=== PATIENT | male | born 1960 | race Caucasian/White ===

== ENCOUNTER → 2016-05-01 | Outpatient (CLI) | payer OTHER ==
[~2016-05-01] MED LIST: ADAP0.1G8 TOP; CHOL20007 PO; ESZO1TAB6 PO; OYST500T47 PO
[2016-05-01 16:48] LABS: BASO % 0.5 %; BASO ABS # 0.03 K/uL (0-0.2); COMPLETE YES; EOS % 3.6 %; HEMATOCRIT 41.7 % (42-52); IG% 0.3 %; LYMPH % 25.5 %; LYMPH ABS # 1.55 K/uL (1.2-3.4); MEAN CORPUSCULAR HEMOGLOBIN 30.8 pg (25-34); MEAN CORPUSCULAR HGB CONC 33.8 g/dl (32-36); MEAN PLATELET VOLUME 10.1 fL (7.4-10.4); MONO % 5.9 %; NEUT % 64.2 %; PLATELET COUNT 256 K/uL (130-400); RED BLOOD COUNT 4.58 M/uL (4.7-6.1); WHITE BLOOD COUNT 6.09 K/uL (4.8-10.8)
[2016-05-01 16:57] LABS: ALT/SGPT 23 U/L (12-78); BLOOD UREA NITROGEN 26 mg/dl (7-18); BUN/CREATININE RATIO 33.8 (10-20); CALCIUM 9.2 mg/dl (8.5-10.1); CARBON DIOXIDE 26 mmol/L (21-32); CHLORIDE 101 mmol/L (98-107); CHOLESTEROL 184 mg/dl (0-200); CREATININE 0.77 mg/dl (0.60-1.40); GLUCOSE 91 mg/dl (70-99); SODIUM 138 mmol/L (136-145); TRIGLYCERIDES 79 mg/dl (0-150); VERY LOW DENSITY LIPOPROT CALC 16 mg/dl
[2016-05-01 17:06] LABS: ALB/GLOB RATIO 1.1 (0.9-2); ALKALINE PHOSPHATASE 71 U/L (45-117); AST/SGOT 20 U/L (15-37); CHOLESTEROL/HDL RATIO 3.2; HDL CHOLESTEROL 57 mg/dl; LDL CHOLESTEROL CALCULATED 111 mg/dl
== END | disposition home or self-care (01) ==
LOC: C.LABBC 15:16
PROVIDERS: ATTEND Internal Medicine
DX: R63.4 Abnormal weight loss (principal); Z11.59 Encounter for screening for other viral diseases

== ENCOUNTER → 2016-05-10 | Outpatient (CLI) | payer OTHER ==
[2016-05-14 18:27] LABS: IGA SERUM 180 mg/dL (81-463); TIS TRANS IGA 1 U/mL (<4)
== END | disposition home or self-care (01) ==
LOC: C.LAB1850 16:22
PROVIDERS: ATTEND Internal Medicine
DX: E61.8 Deficiency of other specified nutrient elements (principal); R10.9 Unspecified abdominal pain

== ENCOUNTER → 2016-05-21 | Outpatient (CLI) | payer OTHER ==
[~2016-05-21] MED LIST changes: +MethylPREDNISolone HOME PACK 16 MG TAB PO SCH; +OPTIRAY 320 IV PRN
--- NOTE | 2016-05-21 11:38 | DIAGNOSTIC IMAGING REPORT ---
CT ABD/PELVIS IV AND ORAL CONT CLINICAL HISTORY: Weight loss, generalized abdominal pain. Bloating. COMPARISON STUDY: MRI dated 07/11/2009 TECHNIQUE: Following the IV administration of 93 mL of Optiray-320, CT scan of the abdomen and pelvis was performed from the lung bases to the proximal femurs. Images are reviewed in the axial, sagittal, and coronal planes. IV contrast was administered without complication. CT DOSE: 262.28 mGy.cm FINDINGS: Lower chest: The heart is normal in size and configuration, without pericardial effusion. The lung bases and pleural spaces are clear. Liver: There are 3 masses within the right hepatic lobe. The largest measures 4.6 cm in diameter. The second largest measures 32 mm in diameter. The third mass measures 11 mm in diameter. These masses demonstrate peripheral nodular enhancement and likely represent hepatic hemangiomas Gallbladder: Unremarkable. Spleen: Normal in size and attenuation. Pancreas: Unremarkable. Adrenal glands: Unremarkable. Kidneys: There is an 8 mm left renal hypodensity consistent with cysts. There is no hydronephrosis. No solid renal masses are visualized. Bowel: There are no transition zones indicate bowel obstruction. There is moderate to marked fecal retention. The appendix is not visualized with certainty. There are no pericecal inflammatory changes. There are no findings to indicate acute diverticulitis. Peritoneum: There is no intraperitoneal free air or abdominal ascites. Vasculature: The abdominal aorta is normal in course and caliber. Adenopathy: None. Pelvic viscera: There is mild bladder wall thickening. There is mild prostamegaly. Skeletal structures: No destructive osseous lesions are seen. IMPRESSION: 1. Right lobe hepatic masses, most consistent with hepatic hemangiomas 2. No evidence of bowel obstruction. No evidence of free air 3. No acute inflammatory changes 4. Fecal retention Electronically signed by: Ruiz Hamm M.D. 05/21/2016 11:37 AM Dictated Date/Time: 05/21/2016 11:31 AM
== END | disposition home or self-care (01) ==
LOC: C.CTS 10:36
PROVIDERS: ATTEND Physician Assistant
DX: R63.4 Abnormal weight loss (principal); R10.9 Unspecified abdominal pain; R16.0 Hepatomegaly, not elsewhere classified

== ENCOUNTER 2016-08-30 14:38 | Emergency (ER) | payer OTHER ==
[~2016-08-30] VITALS: Ht 177.8 cm; Wt 48.9 kg
[~2016-08-30 14:38] MED LIST changes: -ADAP0.1G8 TOP; -CHOL20007 PO; -MethylPREDNISolone HOME PACK 16 MG TAB PO SCH; -OPTIRAY 320 IV PRN; -OYST500T47 PO
[2016-08-30 14:40] VITALS: TEMP 36.5; Ht 177.8 cm; Wt 48.9 kg
--- NOTE | 2016-08-30 15:35 | EMERGENCY ROOM VISIT NOTE ---
History First contact with patient: 14:51 Chief Complaint: GI ASSESSMENT Stated Complaint: RED BLOODY STOOL W/PAIN Nursing Triage Summary: pt to the ED with c/o episode of red blood in stool today and abd pain pt is not on blood thinners History of Present Illness The patient is a 56 year old male who presents to the Emergency Room with complaints of bright red blood per rectum. The patient states that this morning he had one episode of bright red blood per rectum. The patient states that he had some pain before and during the bowel movement. He states the stool was brown and formed with streaks of bright red blood on the outside. He denies diarrhea. He states the stool was not black and tarry. The patient has a history of irritable bowel syndrome but has never had bloody stool. He has had several colonoscopies and EGDs over the last several years which were all negative. He rates his current discomfort a 3/10. He denies any fevers or chills. He denies any nausea or vomiting. He denies any urinary symptoms. Review of Systems A 10 system review of systems was completed with positives and pertinent negatives listed in the HPI. Past Medical/Surgical History Medical Problems: (1) IBS (irritable bowel syndrome) Social History Smoking Status: Never Smoker Marital Status: single Occupation Status: unemployed Current/Historical Medications Scheduled Adapalene (Differin), 1 APPLN TOP HS Cholecalciferol (Vitamin D3), 1 TAB PO DAILY Allergies Coded Allergies: Iodine (Unverified Allergy, Unknown, ., 03/31/15) Uncoded Allergies: IVP DYE (Allergy, Unknown, ., 03/31/15) Physical Exam Vital Signs Date Time Temp Pulse Resp B/P (MAP) Pulse Ox O2 Delivery O2 Flow Rate FiO2 08/30/16 16:53 78 20 126/77 98 08/30/16 14:40 36.5 82 16 123/72 97 Physical Exam VITALS: Vitals are noted on the nurse's note and reviewed by myself. Vital signs stable. The patient is afebrile. He is normotensive. GENERAL: This is a 56-year-old male, in no acute distress, nondiaphoretic, well- developed well-nourished. SKIN: The skin was without rashes, erythema, edema, or bruising. There is no tenting of the skin. Capillary reflex less than 2 seconds. HEAD: Normocephalic atraumatic. EARS: The external ears are normal in appearance. EYES: Pupils equal round and reactive to light and accommodation. Conjunctivae without injection, sclerae without icterus. Extraocular movements intact. NOSE: Patent, turbinates without inflammation or discharge. MOUTH: Mucous membranes moist. Tonsils are not enlarged. Pharynx without erythema or exudate. Uvula midline. Airway patent. Tongue does not deviate. NECK: Supple without nuchal rigidity. No lymphadenopathy. No thyromegaly. Cervical spine is nontender. No JVD. HEART: Regular rate and rhythm without murmurs gallops or rubs. LUNGS: Clear to auscultation bilaterally without wheezes, rales or rhonchi. No retractions or accessory muscle use. ABDOMEN: Positive bowel sounds x 4. Soft, nontender, without masses or organomegaly. RECTAL: There are no hemorrhoids. There is no obvious active bleeding. The stool is brown and guaiac negative. A male RN was present for the exam. MUSCULOSKELETAL: No muscle atrophy, erythema, or edema noted. Normal gait. Strength 5/5 throughout. NEURO: Patient was alert and oriented to person place and time. No focal neurological deficits. Medical Decision & Procedures Laboratory Results 08/30/16 15:30 Red Blood Count 4.46, Mean Corpuscular Volume 92.6, Mean Corpuscular Hemoglobin 30.5, Mean Corpuscular Hemoglobin Concent 32.9, Mean Platelet Volume 9.6, Neutrophils (%) (Auto) 75.1, Lymphocytes (%) (Auto) 17.7, Monocytes (%) (Auto) 5.3, Eosinophils (%) (Auto) 1.5, Basophils (%) (Auto) 0.2, Neutrophils # (Auto) 4.58, Lymphocytes # (Auto) 1.08, Monocytes # (Auto) 0.32, Eosinophils # (Auto) 0.09, Basophils # (Auto) 0.01 08/30/16 15:30 Test 08/30/16 15:30 White Blood Count 6.09 K/uL (4.8-10.8) Red Blood Count 4.46 M/uL (4.7-6.1) Hemoglobin 13.6 g/dL (14.0-18.0) Hematocrit 41.3 % (42-52) Mean Corpuscular Volume 92.6 fL (80-100) Mean Corpuscular Hemoglobin 30.5 pg (25-34) Mean Corpuscular Hemoglobin Concent 32.9 g/dl (32-36) Platelet Count 235 K/uL (130-400) Mean Platelet Volume 9.6 fL (7.4-10.4) Neutrophils (%) (Auto) 75.1 % Lymphocytes (%) (Auto) 17.7 % Monocytes (%) (Auto) 5.3 % Eosinophils (%) (Auto) 1.5 % Basophils (%) (Auto) 0.2 % Neutrophils # (Auto) 4.58 K/uL (1.4-6.5) Lymphocytes # (Auto) 1.08 K/uL (1.2-3.4) Monocytes # (Auto) 0.32 K/uL (0.11-0.59) Eosinophils # (Auto) 0.09 K/uL (0-0.5) Basophils # (Auto) 0.01 K/uL (0-0.2) RDW Standard Deviation 42.7 fL (36.4-46.3) RDW Coefficient of Variation 12.6 % (11.5-14.5) Immature Granulocyte % (Auto) 0.2 % Immature Granulocyte # (Auto) 0.01 K/uL (0.00-0.02) Anion Gap 2.0 mmol/L (3-11) Est Creatinine Clear Calc Drug Dose 74.3 ml/min Estimated GFR () 117.2 Estimated GFR (Non- 101.1 BUN/Creatinine Ratio 21.8 (10-20) Calcium Level 9.1 mg/dl (8.5-10.1) ED Course The patient was seen and examined. Previous visits were reviewed. The patient does not have a fever. He does not have a leukocytosis. He does not have significant anemia. He is hemodynamically stable. The stool was brown and guaiac-negative. There is no obvious active bleeding from the rectum. The patient had one episode of bright red blood per rectum earlier today. He did have discomfort with the bowel movement. This may be related to fissure or potential hemorrhoid. The patient is stable for discharge at this time but should follow-up with his family doctor and gastroenterology if symptoms persist. He should return with any worsening bleeding, lightheadedness, dizziness, chest pain or trouble breathing. The case was discussed with Dr. Traore who agrees with the assessment and treatment plan. Medication Reconciliation: I attest that I have personally reviewed the patient' s current medication list. Blood pressure screening: The patient was found to have normal blood pressure on screening and does not require follow-up. Medical Decision DIFFERENTIAL DIAGNOSIS: Hepatitis, cholecystitis, cholangitis, biliary colic, pancreatitis, pneumonia, subdiaphragmatic abscess, appendicitis, inguinal hernia , nephrolithiasis, inflammatory bowel disease, mesenteric adenitis, peptic ulcer disease, GERD, gastritis, pancreatitis, myocardial infarction, pericarditis, ruptured aortic aneurysm, appendicitis, gastroenteritis, bowel obstruction, splenic infarct, diverticulitis, mesenteric ischemia, metabolic, peritonitis, among others. Impression Primary Impression: Rectal bleeding Departure Information Dispostion Home / Self-Care Condition GOOD Referrals Sammy Cotter M.D. (PCP) Patient Instructions My [facility]
[2016-08-30] MEDS ORDERED: CHOL20007 PO (15:46)
[2016-08-30] MEDS ORDERED: ADAP0.1G8 TOP (15:46)
[2016-08-30 15:51] LABS: BASO % 0.2 %; BASO ABS # 0.01 K/uL (0-0.2); COMPLETE YES; EOS % 1.5 %; HEMATOCRIT 41.3 % (42-52); IG% 0.2 %; LYMPH % 17.7 %; LYMPH ABS # 1.08 K/uL (1.2-3.4); MEAN CELL VOLUME 92.6 fL (80-100); MEAN CORPUSCULAR HEMOGLOBIN 30.5 pg (25-34); MEAN CORPUSCULAR HGB CONC 32.9 g/dl (32-36); MEAN PLATELET VOLUME 9.6 fL (7.4-10.4); MONO % 5.3 %; NEUT % 75.1 %; PLATELET COUNT 235 K/uL (130-400); RED BLOOD COUNT 4.46 M/uL (4.7-6.1); WHITE BLOOD COUNT 6.09 K/uL (4.8-10.8)
[2016-08-30 16:13] LABS: BUN/CREATININE RATIO 21.8 (10-20); CALCIUM 9.1 mg/dl (8.5-10.1); CREATININE 0.75 mg/dl (0.60-1.40)
[2016-08-30 16:53] VITALS: BP 126/77; PULSE 78; O2SAT 98
[2016-10-30] MEDS ORDERED: OYST500T47 PO (13:23)
== END 2016-08-30 16:40 | disposition home or self-care (01) ==
LOC: C.EDB 14:41
DX: K62.5 Hemorrhage of anus and rectum (principal)

== ENCOUNTER → 2016-09-14 | Outpatient (CLI) | payer OTHER ==
[~2016-09-14] MED LIST changes: +ADAP0.1G8 TOP; +CHOL20007 PO; -ESZO1TAB6 PO; +OYST500T47 PO
--- NOTE | 2016-09-14 14:12 | DIAGNOSTIC IMAGING REPORT ---
GI MECKEL'S SCAN CLINICAL HISTORY: R10.9 Abdominal pain of multiple [id number] [id number] Rectal b TECHNIQUE: This examination is acquired following the administration of 15.7 mCi of technetium 99m sodium pertechnetate. COMPARISON STUDY: None FINDINGS: Flow characteristics are considered to be within normal limits. Images to 60 minutes demonstrate normal activity characteristics of the stomach as well as kidneys. There is normal urinary bladder activity. No additional focus of increased activity is appreciated. IMPRESSION: Normal study The above report was generated using voice recognition software. It may contain grammatical, syntax or spelling errors. Electronically signed by: Aly Lay M.D. 09/14/2016 2:10 PM Dictated Date/Time: 09/14/2016 2:09 PM
== END | disposition home or self-care (01) ==
LOC: C.NUCL 12:33
PROVIDERS: ATTEND Physician Assistant
DX: D64.9 Anemia, unspecified (principal); K62.5 Hemorrhage of anus and rectum; R10.9 Unspecified abdominal pain

== ENCOUNTER → 2016-11-08 | Outpatient (CLI) | payer OTHER ==
[2016-11-08 15:25] LABS: CALCIUM 9.3 mg/dl (8.5-10.1); CREATININE 0.76 mg/dl (0.60-1.40)
[2016-11-12 17:05] LABS: ALBUMIN 4.6 G/DL (3.8-4.8); GAMMA GLOBULIN 1.1 G/DL (0.8-1.7); TOTAL PROTEIN 7.2 G/DL (6.2-8.3)
== END | disposition home or self-care (01) ==
LOC: C.LAB1850 12:48
PROVIDERS: ATTEND Internal Medicine Rheumatology
DX: M81.0 Age-related osteoporosis without current pathological fracture (principal); E55.9 Vitamin D deficiency, unspecified; R63.4 Abnormal weight loss; E61.8 Deficiency of other specified nutrient elements

== ENCOUNTER → 2016-11-14 | Day surgery (SDC) | payer OTHER ==
[2016-10-30 13:23] VITALS: BMI 15.0
[~2016-11-14] VITALS: Ht 177.8 cm; Wt 48.2 kg
[~2016-11-14] MED LIST changes: +LIDOCAINE HCL 2% 2 ML VIAL (20MG/ML) ONE; +PROPOFOL IV EMULSION 10 MG/ML 20 ML VIAL IV ONE
[2016-11-14 13:08] VITALS: Ht 177.8 cm; Wt 48.2 kg
--- NOTE | 2016-11-14 14:10 | Discharge Instructions ---
Endoscopy Patient Instructions Date / Procedure(s) Performed Nov 14, 2016. Colonoscopy Allergy Information Coded Allergies: Iodinated Diagnostic Agents (Verified Allergy, Unknown, RASH, 10/30/16) Discharge Date / Findings Nov 14, 2016. Internal hemorrhoids Medication Instructions OK to resume all medications today as prescribed Reported Home Medications Medications Dose Route/Sig Max Daily Dose Days Date Category Dose Instructions Calcium (Oyster Shell) 500 Mg Tab 1 Tab PO QPM 10/30/16 Reported Vitamin D3 (Cholecalciferol) 2,000 Unit Tab 1 Dose PO QAM 90 08/30/16 Reported LIQUID FORM Differin (Adapalene) 0.1 % Gel 1 Appln TOP Q2D 30 08/30/16 Reported Provider Instructions Activity Restrictions - No exercising or heavy lifting for 24 hours. - Do not drink alcohol the day of the procedure. - Do not drive a car or operate machinery until the day after the procedure. - Do not make any important decisions or sign important papers in 24 hours after the procedure. Following Day: - Return to full activity which may include returning to work/school. Diet Start your diet with liquids and light foods (jello, soup, juice, toast). Then eat your usual diet if not nauseated. Treatment For Common After Affects For mild abdominal pain, bloating, or excessive gas: - Rest - Eat lightly - Lie on right side Follow-Up Information Follow-up with Dr. Pato Cotter as scheduled Anesthesia Information What You Should Know You have had a procedure that required some medicine to reduce anxiety and discomfort. This treatment is called moderate sedation. After receiving the treatment, you may be sleepy, but you will be able to breathe on your own. The effects of the treatment may last for several hours. Follow these instructions along with Activity/Diet recommendations noted above: * Do NOT do anything where dizziness or clumsiness would be dangerous. * Rest quietly at home today, then you can be up and about tomorrow. * Have a responsible person stay with you the rest of today. * You may have had an I.V. today. If so, you may take the dressing off later today. Recommendations Call your doctor if: * Trouble breathing * Continuous vomiting for more than 24 hours * Temperature above 101 degrees * Severe abdominal pain or bloating * Pain not relieved by pain medicine ordered * There is increased drainage or redness from any incision * A large amount of rectal bleeding greater than 2-3 tablespoons. (If you had a polyp/s removed or have hemorrhoids, a small amount of blood - from the rectum is to be expected.) * You have any unanswered questions or concerns. IN THE EVENT OF A SERIOUS EMERGENCY, GO TO THE NEAREST EMERGENCY ROOM Your discharge instructions were prepared by provider Khai Robert. Patient Instructions Signature Page See Michelle Patient (or Guardian) Signature/Date: I have read and understand the instructions given to me by my caregivers. Caregiver/RN/Doctor Signature/Date: The above-named patient and/or guardian has received patient instructions on this date. + Original Patient Signature Page (only) stays with chart. Please make copy for patient.
--- NOTE | 2016-11-14 14:12 | Endo History and Physical ---
History & Physical Date of Service: Nov 14, 2016. Chief Complaint: bleeding, weight loss Referring Physician: Dr. Pato Cotter History of Present Illness 56 yo CM who presents for colonoscopy secondary to bleeding and weight loss. Past Surgical History Hx Cardiac Surgery: No Hx Internal Defibrillator: No Hx Pacemaker: No Hx Abdominal Surgery: No Hx of Implantable Prosthesis: No Hx Post-Op Nausea and Vomiting: No Hx Cancer Surgery: No Hx Thoracic Surgery: No Hx Orthopedic: No Hx Urinary Tract Surgery: No Family History IBD Social History Smoking Status: Former Smoker Hx Substance Use: No Hx Alcohol Use: Yes (OCCASIONALLY) Allergies Coded Allergies: Iodinated Diagnostic Agents (Verified Allergy, Unknown, RASH, 10/30/16) Current Medications Reported Home Medications Medications Dose Route/Sig Max Daily Dose Days Date Category Dose Instructions Calcium (Oyster Shell) 500 Mg Tab 1 Tab PO QPM 10/30/16 Reported Vitamin D3 (Cholecalciferol) 2,000 Unit Tab 1 Dose PO QAM 90 08/30/16 Reported LIQUID FORM Differin (Adapalene) 0.1 % Gel 1 Appln TOP Q2D 30 08/30/16 Reported Vital Signs Weight (Kilograms): 48.18 Height (Feet): 5 Height (Inches): 10 Date Time Temp Pulse Resp B/P (MAP) Pulse Ox O2 Delivery O2 Flow Rate FiO2 11/14/16 13:12 36.4 74 20 126/73 (90) 100 Room Air Physical Exam General Appearance: WD/WN, no apparent distress Respiratory/Chest: Auscultation: breath sounds normal Cardiovascular: Heart Auscultation: RRR Abdomen: Bowel Sounds: normal Inspection & Palpation: soft, non-distended, no tenderness, guarding & rebound Assessment and Plan Assessment: 56 yo CM who presents for colonoscopy secondary to bleeding and weight loss. Plan: Proceed with colonoscopy.
--- NOTE | 2016-11-14 14:44 | GI REPORT ---
Procedure Date: 11/14/2016 1:53 PM Procedure: Colonoscopy Indications: Rectal bleeding, Weight loss Medicines: Monitored Anesthesia Care Complications: No immediate complications. Estimated Blood Loss: Estimated blood loss: none. Procedure: Pre-Anesthesia Assessment: - Prior to the procedure, a History and Physical was performed, and patient medications and allergies were reviewed. The patient's tolerance of previous anesthesia was also reviewed. The risks and benefits of the procedure and the sedation options and risks were discussed with the patient. All questions were answered, and informed consent was obtained. Prior Anticoagulants: The patient has taken no previous anticoagulant or antiplatelet agents. ASA Grade Assessment: II - A patient with mild systemic disease. After reviewing the risks and benefits, the patient was deemed in satisfactory condition to undergo the procedure. After I obtained informed consent, the scope was passed under direct vision. Throughout the procedure, the patient's blood pressure, pulse, and oxygen saturations were monitored continuously. The scope was introduced through the anus and advanced to the terminal ileum. The colonoscopy was performed without difficulty. The patient tolerated the procedure well. The quality of the bowel preparation was good. The terminal ileum, ileocecal valve, appendiceal orifice, and rectum were photographed. Findings: Non-bleeding internal hemorrhoids were found during retroflexion. The hemorrhoids were small. Impression: - Non-bleeding internal hemorrhoids. - No specimens collected. Recommendation: - Resume previous diet. - Continue present medications. - Repeat colonoscopy in 10 years for surveillance. - Return to primary care physician as previously scheduled. Khai Robert DO 11/14/2016 2:44:09 PM This report has been signed electronically. Note Initiated On: 11/14/2016 1:53 PM I attest to the content of the Intraoperative Record and orders documented therein, exceptions below
--- NOTE | 2016-11-14 14:53 | Anesthesiology Progress Note ---
Anesthesia Post Op Note Date & Time Nov 14, 2016 at 14:53 Vital Signs Pain Intensity: 0 Vital Signs Past 12 Hours Date Time Temp Pulse Resp B/P (MAP) Pulse Ox O2 Delivery O2 Flow Rate FiO2 11/14/16 14:38 66 20 99/53 (68) 98 Room Air 11/14/16 13:12 36.4 74 20 126/73 (90) 100 Room Air Notes Mental Status: alert / awake / arousable, participated in evaluation Pt Amnestic to Procedure: Yes Nausea / Vomiting: adequately controlled Pain: adequately controlled Airway Patency, RR, SpO2: stable & adequate BP & HR: stable & adequate Hydration State: stable & adequate Anesthetic Complications: no major complications apparent
[2016-11-14 15:10] VITALS: BP 109/71; PULSE 58; O2SAT 99
== END | disposition home or self-care (01) ==
LOC: C.GI 12:49
PROVIDERS: ATTEND Internal Medicine
DX: K62.5 Hemorrhage of anus and rectum (principal); K64.8 Other hemorrhoids; R63.4 Abnormal weight loss; Z87.891 Personal history of nicotine dependence

== ENCOUNTER → 2017-02-26 | Outpatient (CLI) | payer OTHER ==
[~2017-02-26] MED LIST changes: -LIDOCAINE HCL 2% 2 ML VIAL (20MG/ML) ONE; -PROPOFOL IV EMULSION 10 MG/ML 20 ML VIAL IV ONE
--- NOTE | 2017-02-26 14:19 | DIAGNOSTIC IMAGING REPORT ---
R KNEE 1 OR 2 VIEWS ROUTINE CLINICAL HISTORY: Right knee pain. COMPARISON: None FINDINGS: Alignment of the right knee is anatomic. No fracture or osseous lesion is evident. There is mild spurring of the patella at the insertion of quadriceps. No joint effusion is a identified. Joint spaces are preserved. IMPRESSION: Unremarkable right knee radiographs. Electronically signed by: Vega Bro M.D. 02/26/2017 2:18 PM Dictated Date/Time: 02/26/2017 2:17 PM
== END | disposition home or self-care (01) ==
LOC: C.RADBC 13:56
PROVIDERS: ATTEND Internal Medicine
DX: M25.561 Pain in right knee (principal)

== ENCOUNTER → 2017-04-09 | Outpatient (CLI) | payer OTHER | END | disposition home or self-care (01) | LOC: C.LABBC 14:31 | PROVIDERS: ATTEND Internal Medicine Rheumatology | DX: M81.0 Age-related osteoporosis without current pathological fracture (principal); E55.9 Vitamin D deficiency, unspecified; E61.8 Deficiency of other specified nutrient elements ==

== ENCOUNTER 2019-02-02 07:20 | Observation (INO) ==
--- NOTE | 2019-01-20 13:55 | Anesthesiology Consultation ---
Date of Service January 20, 2019 Cystolithopexy under propofol sedation october 2018. No noted anesthesia complications. Assessment & Plan (1) Encounter for pre-operative examination: Chart Review Chart Review: Acceptable Risk for Surgery and Patient NOT seen in Pre Admission Testing Consults Requested none History Surgery Operation Date: 02/02/19 09:05 Proposed Procedures p Greenlight Transurethral Resection Prostate (Photoselective Vaporization Greenlight Laser) - Monico Francisco, DO Height/Weight Height: 5 ft 11 in Weight: 48.081 kg Allergies Allergy/AdvReac Type Severity Reaction Status Date / Time Gadolinium-Containing Allergy Mild Rash Verified 01/14/19 13:50 Contrast Medi Iodinated Contrast Media Allergy Mild Rash Verified 01/14/19 13:50 shellfish derived Allergy Mild Rash Verified 01/14/19 13:50 gluten AdvReac Intermediate Gastrointestinal Verified 01/14/19 13:50 Upset mannitol [From Reclast] AdvReac Intermediate Redness, Verified 01/14/19 13:50 Red eyes, "puffiness" water for injection,sterile AdvReac Intermediate Redness, Verified 01/14/19 13:50 [From Reclast] Red eyes, "puffiness" zoledronic acid AdvReac Intermediate Redness, Verified 01/14/19 13:50 [From Reclast] Red eyes, "puffiness" Medications Home Medications Medication Instructions Recorded Confirmed Last Taken adapalene [Differin] 1 applic TOPICAL HS PRN 02/12/18 01/14/19 11/22/18 calcium carbonate [Calcium 500] 500 mg PO QPM 02/12/18 01/14/19 11/22/18 cholecalciferol (vitamin D3) 5,000 unit PO QAM 02/12/18 01/14/19 11/20/18 [Vitamin D3] ketotifen fumarate 0.025 % (0.035 1 drp OP UD PRN ml 08/18/18 01/14/19 11/08/18 %) eye drops finasteride 5 mg tablet 5 mg PO PM #30 tab 10/22/18 01/14/19 11/23/18 20:00 silodosin 8 mg capsule 8 mg PO PM #30 cap 10/22/18 01/14/19 11/23/18 20:00 meclizine 25 mg PO TID PRN #14 tab 11/09/18 01/14/19 11/11/18 ondansetron HCl [Zofran] 4 mg PO Q6H PRN #14 tab 11/09/18 01/14/19 11/11/18 peg 400-propylene glycol (PF) 1 drp OPHTHALMIC (EYE) BID PRN 01/14/19 01/14/19 Unknown [Systane (PF)] triamcinolone acetonide [Nasacort] 1 spray INTRANASAL UD 01/14/19 01/14/19 Unknown Past Medical History Medical History Benign prostatic hyperplasia with urinary obstruction Bladder stones Chronic interstitial cystitis GERD without esophagitis controlled Hx of irritable bowel syndrome Kidney stones Osteoporosis PAC (premature atrial contraction) PVC's (premature ventricular contractions) Past Family History Family History Father Kidney stones Past Surgical History Surgical History History of colonoscopy X 3 History of cystoscopy 03/10/18 + 10/2018 cystolithopaxy: MAC sedation at [facility] History of esophagogastroduodenoscopy (EGD) X 2 Hx of LASIK Nausea and vomiting after administration of anesthetic agent Social History Smoking Status: Former smoker tobacco type: cigarettes Do You Dip or Chew Tobacco: No Smoking End Date: Hx Alcohol Use: Yes Alcohol type: beer and wine alcohol intake frequency: holidays/special occasions only Hx Substance Use: No substance use type: does not use Testing Laboratory Results Laboratory Tests 08/09/17 11/09/18 11/09/18 14:22 16:50 16:50 WBC Hgb Hct Plt Count PT 10.8 INR 1.1 APTT 26.5 Sodium Potassium Chloride Carbon Dioxide BUN Creatinine Glucose Free T4 1.10 TSH 1.250 01/15/19 01/15/19 14:35 14:35 WBC 7.16 Hgb 14.3 Hct 42.8 Plt Count 285 PT INR APTT Sodium 137 Potassium 4.1 Chloride 102 Carbon Dioxide 31 BUN 18 Creatinine 0.74 Glucose 76 Free T4 TSH Electrocardiogram Date: 11/09/18 Findings: + NSR @ and + [facility] Chest X-Ray Date: 02/21/18 Findings: + NAD
[~2019-02-02 07:20] MED LIST changes: -ADAP0.1G8 TOP; +CEFAZOLIN 2000MG 2,000 MG/15 ML SYR IV SCH; -CHOL20007 PO; +LR 15ML/HR IV SCH; -OYST500T47 PO
[2019-02-02] MEDS ORDERED: MIDAZOLAM HCL 1 MG/ML 2ML VIAL ONE (07:31)
[2019-02-02] MEDS ORDERED: fentaNYL citrate 100 MCG/2 ML VIAL ONE (07:31)
[2019-02-02] MEDS ORDERED: ONDANSETRON INJ 2 MG/ML 2 ML VIAL ONE (08:14)
[2019-02-02] MEDS ORDERED: LIDOCAINE HCL 2% 2 ML VIAL/AMP(20MG/ML) INFIL ONE (08:14)
[2019-02-02] MEDS ORDERED: PROPOFOL IV EMULSION 10 MG/ML 20 ML VIAL IV ONE (08:14)
--- NOTE | 2019-02-02 08:23 | History & Physical Bridge Note ---
Date of Service February 02, 2019 History & Physical Bridge Note I have examined the patient, reviewed the History & Physical and in the interval since the performance of the History & Physical I have noted the following changes of clinical significance: no changes noted
[2019-02-02] MEDS ORDERED: SCOPOLAMINE 1.5 MG TDSY ONE (08:30)
[2019-02-02] MEDS ORDERED: SCOPOLAMINE 1.5 MG TDSY TD ONE (08:35)
[2019-02-02] MEDS ORDERED: ePHEDrine sulfate 50 MG/ML AMP IV PRN (08:35)
[2019-02-02] MEDS ORDERED: PROMETHAZINE HCL 6.25 MG in SODIUM CHLORIDE 0.9% 50 ML IV PRN (08:35)
[2019-02-02] MEDS ORDERED: fentaNYL citrate 100 MCG/2 ML VIAL IV PRN (08:35)
[2019-02-02] MEDS ORDERED: ONDANSETRON INJ 2 MG/ML 2 ML VIAL IV PRN (08:35)
[2019-02-02] MEDS ORDERED: ATROPINE SULFATE 0.1 MG/ML 10ML SYR IV PRN (08:35)
[2019-02-02] MEDS ORDERED: DEXAMETHASONE SOD INJ 4 MG/ML VIAL ONE (09:51)
[2019-02-02] MEDS ORDERED: ePHEDrine sulfate 50 MG/ML SYR ONE (09:56)
[2019-02-02] MEDS ORDERED: BELLADONNA/OPIUM SUPP 60 MG SUPP PR ONE ×2 (10:25→11:53)
[2019-02-02] MEDS ORDERED: BELLADONNA/OPIUM SUPP 60 MG SUPP PR PRN (10:25)
--- NOTE | 2019-02-02 10:40 | Operative Report ---
[facility] Post Operative Report Pre & Post Diagnosis Operation Date: 02/02/19 09:05 Pre-Op Diagnosis: Benign Prostate Hyperplasia Post-Op Diagnosis: Benign Prostate Hyperplasia I identified the patient and participated in the time-out.: Yes Procedure Operation Date: 02/02/19 09:05 Actual Procedures p Greenlight Laser Photovaporization Enucleation and Transurethral Resection Prostate - Monico Francisco DO Surgeon Monico Francisco, II, DO Reworker None Estimated Blood Loss 10 Findings Consistent with Post-Op Diagnosis Large Prostate with obstruction. Specimens Prostate adenoma. Drains 22Fr Catheter Anesthesia Type General Complications none Disposition Disposition: Recovery Room Indications Patient with obstruction due to prostate enlargement. Risks and benefits discussed at length. Description of Procedure Patient was consented and brought back to the operating room. Patient was placed under anesthesia in the supine position and moved to the dorsal lithotomy position. Patient was prepped and draped in the regular sterile fashion. A time out was completed. A 30degree Cystoscope was placed into the bladder and the entire bladder was examined. The UO's were identified as well as the bladder neck, trigone, dome, and the other important landmarks. The prostatic urethra and large lobe s/adenoma was assessed and the veru and bladder neck identified and area/size was assessed. The cystoscope with laser bridge and the Greenlight laser fiber were selected. Starting at the 5 and 7 o'clock positions, a channel was created from bladder neck to the veru. A channel was further formed between the two areas. No major bleeding or areas of concern. The resection then started at the 1 and 11 oclock positions and swept down to the channel. Adenoma pieces were enucleated and displaced into the bladder. All bleeding was controlled. The Specimen was removed and sent for analysis. The resection bed and any bleeding areas were fulgurated/cauterized and the entire area inspected. All bleeding was controlled. The bladder was inspected a final time. The bladder was emptied and irrigated. All specimen and debris was removed. The scope was removed with the bladder partially full. A catheter was placed and balloon elevated. This was easily irrigated. The patient was cleaned, aroused from anesthesia, and transferred to the pacu in stable condition having tolerated the procedure well with no complications. I was present and participated in all aspects of the procedure. The patient will be monitored in the PACU until transferred. I attest to the content of the Intraoperative Record and any orders documented therein. Any exceptions are noted below.
[2019-02-02] MEDS ORDERED: OXYCODONE HCL IR 5 MG TAB (IMMEDIATE RELEASE) PO PRN (11:53)
[2019-02-02] MEDS ORDERED: MECLIZINE HCL 25 MG TAB PO PRN (11:53)
[2019-02-02] MEDS ORDERED: TRIAMCINOLONE ACET NASAL SPRAY 10.8ML BTL PRN (11:53)
[2019-02-02] MEDS ORDERED: MoRPHine SULFATE 2 MG/ML CARP IV PRN (11:53)
[2019-02-02] MEDS ORDERED: ONDANSETRON 4 MG TAB PO PRN (11:53)
--- NOTE | 2019-02-02 11:53 | Anesthesiology Progress Note ---
Date of Service February 02, 2019 Anesthesia Post Procedure Vital Signs Vital Signs: Temp Pulse Pulse Resp BP BP Pulse Ox 02/02/19 11:30 36.8 C 61 18 112/61 97 02/02/19 11:20 63 15 125/65 98 02/02/19 11:10 65 15 115/71 100 02/02/19 11:00 65 15 119/70 100 02/02/19 10:50 58 L 14 119/71 100 02/02/19 10:42 36.3 C L 71 12 125/69 100 02/02/19 08:10 36.7 C 80 20 134/81 97 Pain Intensity Penis: Pain Intensity: 5 Transfer of Care Handoff Completed per policy Notes Mental Status: alert / awake / arousable Patient Amnestic to Procedure: Yes Nausea / Vomiting: adequately controlled Pain: adequately controlled Airway Patency, RR, SpO2: stable & adequate BP & HR: stable & adequate Hydration State: stable & adequate Anesthetic Complications: no major complications apparent
[2019-02-02 12:21] LABS: Basophils # (auto) 0.01 K/uL (0-0.2); Basophils % (auto) 0.1 %; Eosinophils # (auto) 0.08 K/uL (0-0.5); Eosinophils % (auto) 0.7 %; Hematocrit (blood only) 39.4 % (42-52); Hemoglobin 13.2 g/dL (14.0-18.0); Immature Granulocytes # (auto) 0.01 K/uL (0.00-0.02); Immature Granulocytes % (auto) 0.1 %; Lymphocytes # (auto) 1.09 K/uL (1.2-3.4); Mean Corpuscular Hemoglobin 31.4 pg (25-34); Mean Corpuscular Hgb Conc 33.5 g/dL (32-36); Mean Corpuscular Volume 93.8 fL (80-100); Mean Platelet Volume 9.5 fL (7.4-10.4); Monocytes # (auto) 0.14 K/uL (0.11-0.59); Monocytes % (auto) 1.3 %; Neutrophils # (auto) 9.53 K/uL (1.4-6.5); Neutrophils % (auto) 87.8 %; Platelet Count 228 K/uL (130-400); RDW Standard Deviation 44.7 fL (36.4-46.3); White Blood Count 10.86 K/uL (4.8-10.8)
[2019-02-02 12:43] LABS: Albumin Level 3.7 gm/dl (3.4-5.0); BUN Creatinine Ratio 28.4 (10-20); Calcium 9.2 mg/dl (8.5-10.1); Creatinine Clr Calc Pharmacy 71.7 ml/min; Est GFR (African American) 114.3; Est GFR (Non-African American) 98.6; Potassium 3.9 mmol/L (3.5-5.1)
[2019-02-02 12:46] LABS: Albumin Globulin Ratio 1.1 (0.9-2); Bilirubin,Total 0.4 mg/dl (0.2-1); Globulin 3.3 gm/dl (2.5-4.0)
[2019-02-02] MEDS: SODIUM CHLORIDE 0.9% 1000ML 1,000 ML IV SCH (16:10)
[2019-02-02] MEDS: CHECK SCOPOLAMINE PATCH PLACEMENT SCH ×2 (16:17→23:51)
[2019-02-02] MEDS: CEFAZOLIN 1000MG 1,000 MG/7.5 ML SYR IV SCH ×2 (16:17→23:50)
[2019-02-02] MEDS: SILODOSIN: ORDER AWAITING ACTION SCH ×2 (16:21→23:51)
[2019-02-03] MEDS: SODIUM CHLORIDE 0.9% 1000ML 1,000 ML IV SCH (03:46)
[2019-02-03] MEDS: SILODOSIN: ORDER AWAITING ACTION SCH (07:16)
[2019-02-03] MEDS: CEFAZOLIN 1000MG 1,000 MG/7.5 ML SYR IV SCH (08:09)
[2019-02-03] MEDS: CHECK SCOPOLAMINE PATCH PLACEMENT SCH (08:09)
--- NOTE | 2019-02-03 08:25 | Anesthesiology Progress Note ---
Date of Service February 03, 2019 Anesthesia Post Procedure Vital Signs Vital Signs: Temp Pulse Pulse Resp BP Pulse Ox Pulse Ox 02/03/19 08:02 36.4 C L 55 L 16 104/54 L 99 02/03/19 05:14 101/62 02/03/19 04:30 96/44 L 02/03/19 04:00 36.6 C 53 L 16 99/41 L 98 02/03/19 00:05 98 02/02/19 23:02 36.4 C L 53 L 16 90/57 L 98 02/02/19 15:51 36.2 C L 53 L 16 102/55 L 98 02/02/19 14:53 36.4 C L 65 16 95/57 L 98 02/02/19 13:30 61 16 91/50 L 100 02/02/19 12:32 36.1 C L 56 L 16 101/55 L 97 02/02/19 12:11 56 L 16 110/66 98 02/02/19 11:30 36.3 C L 59 L 18 120/68 97 02/02/19 11:20 63 15 125/65 98 02/02/19 11:10 65 15 115/71 100 02/02/19 11:00 65 15 119/70 100 02/02/19 10:50 58 L 14 119/71 100 02/02/19 10:42 36.3 C L 71 12 125/69 100 Pain Intensity Penis: Pain Intensity: 0 Notes Mental Status: alert / awake / arousable and participated in evaluation Patient Amnestic to Procedure: Yes Nausea / Vomiting: adequately controlled Pain: adequately controlled Airway Patency, RR, SpO2: stable & adequate BP & HR: stable & adequate Hydration State: stable & adequate Anesthetic Complications: no major complications apparent and Pt Satisfied with anesthetic care
--- NOTE | 2019-02-03 08:50 | Urology Progress Note ---
Date of Service February 03, 2019 Assessment & Plan (1) Benign prostatic hyperplasia with urinary obstruction: 58yo M POD #1 s/p TURP with Dr. Francisco Progressing as expected, pt feels well CBI clamped at 0830AM If urine remains clear around lunch, okay to plug CBI port and discharge home. Discharge instructions reviewed. Subjective POD #[address] Francisco Pt doing well Ambulated yesterday Tolerating regular diet Denies significant pain Denies n/v/f/c Review of Systems Review of Systems: All systems reviewed & are unremarkable except as noted in HPI & below Physical Exam Physical Exam: A&Ox3 RRR abd soft saez draining clear - CBI running at moderate rate Results & Data Vital Signs (Past 12 Hours) Vital Signs Temp Pulse Pulse Resp BP Pulse Ox Pulse Ox 02/03/19 08:02 36.4 C L 55 L 16 104/54 L 99 02/03/19 05:14 101/62 02/03/19 04:30 96/44 L 02/03/19 04:00 36.6 C 53 L 16 99/41 L 98 02/03/19 00:05 98 02/02/19 23:02 36.4 C L 53 L 16 90/57 L 98 [facility] Care Time/CCT Total # of Minutes Spent Total Time Spent with Patient: Total time spent is greater than 50% in coordination of care (as documented) at patient's floor/unit and/or counseling patient:
--- NOTE | 2019-02-09 12:01 | Discharge Summary ---
Date of Service February 09, 2019 Admission HPI Per Admitting Provider See H&P Principal Diagnosis See H&P Discharge Exam General: Alert in no acute distress. HEENT: Normocephalic Atraumatic. Inspection normal. Cranial Nerves 2-12 Grossly intact. Normal inspection of face. Normal inspection of neck. Psychologic: Normal affect. Respiratory: Nonlabored. No use of accessory muscles. No tachypnea or dyspnea. Cardiovascular: No tachycardia Skin: [place] and Dry. No rashes or visible lesions. Extremities/Lymphatics: No edema Abdomen: Soft Non-distended. No rebound or guarding. Discharge Data Allergies Allergy/AdvReac Type Severity Reaction Status Date / Time Gadolinium-Containing Allergy Mild Rash Verified 02/02/19 07:58 Contrast Medi Iodinated Contrast Media Allergy Mild Rash Verified 02/02/19 07:58 shellfish derived Allergy Mild Rash Verified 02/02/19 07:58 gluten AdvReac Intermediate Gastrointestinal Verified 02/02/19 07:58 Upset mannitol [From Reclast] AdvReac Intermediate Redness, Verified 02/02/19 07:58 Red eyes, "puffiness" water for injection,sterile AdvReac Intermediate Redness, Verified 02/02/19 07:58 [From Reclast] Red eyes, "puffiness" zoledronic acid AdvReac Intermediate Redness, Verified 02/02/19 07:58 [From Reclast] Red eyes, "puffiness" Procedures Performed Operation Date: 02/02/19 09:05 Actual Procedures p Greenlight Laser Transurethral Resection Prostate - Monico Francisco, Hospital Course (1) Benign prostatic hyperplasia with urinary obstruction: 58yo M POD #1 s/p TURP with Dr. Francisco Progressing as expected, pt feels well CBI clamped at 0830AM If urine remains clear around lunch, okay to plug CBI port and discharge home. Discharge instructions reviewed. Total Time Total Time Spent Total Time Spent (In Minutes): 10 Mins Total Time Includes: Examination of the Patient, Discharge Planning, Medication Reconciliation and Communication With Other Providers Discharge Plan Discharge Items Patient Disposition: Home - Self-Care Reason For Visit: Benign Prostate Hyperplasia Discharge Diagnosis: BPH Activity: Per Instructions section Lifting: No more than 10 pounds Sexual Activity: Wait until after follow-up appointment Exercise/Sports: Wait until after follow-up appointment Driving/Machine Use: Please do not drive while taking prescription pain control Non-emergency contact: Urologist Call non-emergency contact if: your pain is worsening and your pain is unusual for you Follow-up/Referrals: Sammy Cotter MD [Primary Care Provider] - Monico Francisco DO [Physician] - 02/11/19 1:45 pm [facility],Nurse [Physician] - 02/06/19 10:40 am Diet: Regular Addtl Attending Provider Instructions: Please take all medications as prescribed and keep all follow-ups as scheduled. Please call our office at [phone] with any questions, concerns or need to reschedule appointments for any reason. We are happy to assist you. Tips for your recovery at home: Dont be alarmed by brownish or reddish blood or clots in your urine. This is a result of the procedure. This may occur off and on for weeks to months after the procedure but should continue to improve. Drink plenty of fluids during the day (enough to keep your urine very light colored). This will help keep a healthy flow of urine. Do not lift >25 lbs until your followup Avoid constipation. Please use a stool softener (Colace) for the first two weeks after your procedure Be sure to finish the antibiotics as prescribed. If you go home with a catheter, please wash tubing where it enters your body twice daily with mild soap (Dove or Dial). Once your catheter is removed, expect some blood in your urine and some burning when you urinate. You should have an appointment to have this removed, if you do not please call our office to yaya e. When to call [facility] at [phone]: Your urine contains heavy blood clots You are constantly leaking urine Fever of 101F or higher, chills, nausea, or vomiting Your pain is not relieved with medication Pending Studies at Discharge: No Stand-Alone Forms: My [employer], Smoking Cessation Medications and DC Order Prescriptions: New tramadol 50 mg tablet 50 mg PO BID PRN (Reason: pain) Qty: 14 RF: 0 docusate sodium [Colace] 100 mg capsule 100 mg PO BID Qty: 30 RF: 0 Continued ketotifen fumarate 0.025 % (0.035 %) drops 1 drp OP UD PRN (Reason: as directed) RF: 0 silodosin 8 mg capsule 8 mg PO PM Qty: 30 RF: 0 finasteride 5 mg tablet 5 mg PO PM Qty: 30 RF: 0 meclizine 25 mg tablet 25 mg PO TID PRN (Reason: dizziness) Qty: 14 RF: 0 ondansetron HCl [Zofran] 4 mg tablet 4 mg PO Q6H PRN (Reason: nausea and vomiting) Qty: 14 RF: 0 Systane (PF) 0.4-0.3 % Dropperette 1 drp OPHTHALMIC (EYE) BID PRN (Reason: Dry Eyes) RF: 0 triamcinolone acetonide [Nasacort] 55 mcg Aerosol,[place] 1 spray INTRANASAL UD RF: 0 calcium carbonate [Calcium 500] 500 mg calcium (1,250 mg) Tablet 500 mg PO QPM RF: 0 adapalene [Differin] 0.1 % Gel 1 applic TOPICAL HS PRN (Reason: Acne) RF: 0 cholecalciferol (vitamin D3) [Vitamin D3] 5,000 unit Tablet 5,000 unit PO QAM RF: 0 Discharge Orders: Discharge Order (Routine); Ordered 02/03/19 Ordered By: Gabriella Jerome Admission Data Admit Date/Time: 02/02/19 10:46 Attending Provider: Monico Francisco Admit Provider: Monico Francisco Primary Care Provider: Sammy Cotter Other Interventions: Discharge Summary Assessment (RN) Last Done: 02/03/19 13:26 DC Date/Time DO NOT enter until pt leaves facility: 02/03/19 13:45
== END 2019-02-03 13:45 | disposition home or self-care (01) ==
LOC: ASU 07:20 → 3N 07:20